=== PATIENT | female | born 1985 | race Caucasian/White ===

== ENCOUNTER 2018-12-07 08:11 | Observation (INO) | payer MEDICAID ==
[~2018-12-07] VITALS: Ht 160 cm; Wt 86.2 kg
== END 2018-12-07 11:05 | disposition home or self-care (01) ==
LOC: 8 EST LDRP 08:11
PROVIDERS: ADMIT Obstetrics & Gynecology; ATTEND Obstetrics & Gynecology
DX: O62.9 Abnormality of forces of labor, unspecified (principal); O26.893 Other specified pregnancy related conditions, third trimester; N89.8 Other specified noninflammatory disorders of vagina; Z3A.38 38 weeks gestation of pregnancy
CPT/HCPCS: 99281; G0378

== ENCOUNTER 2018-12-08 16:21 | Inpatient (IN) | payer MEDICAID ==
[~2018-12-08] VITALS: Ht 167.6 cm; Wt 108.9 kg
[2018-12-08] MEDS ORDERED: SODIUM CHLORIDE 0.9% 1,000 ML IV ONE (16:35)
[2018-12-08 17:04] LABS: BASOPHILS % 0.5 % (0.0-2.0); EOSINOPHILS % 0.9 % (0.0-5.0); HEMATOCRIT. 34.4 % (36.0-48.0); HEMOGLOBIN. 11.7 g/dL (12.0-16.0); LYMPHOCYTES % 21.8 % (20.0-50.0); MEAN CORPUSCULAR HEMOGLOBIN 29.3 pg (28.0-32.0); MEAN CORPUSCULAR VOLUME 85.9 fL (81.0-99.0); MEAN PLATELET VOLUME 9.4 fl (7.4-10.4); MONOCYTES % 7.1 % (2.0-8.0); NEUTROPHILS % 69.7 % (40.0-76.0); PLATELET 204 x1000/uL (130-400); RED BLOOD CELL COUNT 4.01 mill/uL (4.2-5.4)
[2018-12-08 17:07] LABS: INR 0.9; PROTHROMBIN TIME 9.7 sec (9.6-11.0)
[2018-12-08 17:08] LABS: CHLORIDE 110 mEq/L (98-107)
[2018-12-08 17:13] LABS: ETHANOL BLOOD < 10 mg/dL
[2018-12-08 17:53] LABS: B-HCG QUANTITATIVE 23395 mIU/mL (<3)
[2018-12-08 22:30] VITALS: BP 99/50
[2018-12-08] MEDS: SODIUM CHLORIDE 0.9% 1,000 ML IV SCH (23:35)
[2018-12-08] MEDS ORDERED: ACETAMINOPHEN 325MG TABLET PO PRN (23:45)
[2018-12-08] MEDS ORDERED: CLONIDINE 0.1MG TABLET PO PRN (23:45)
[2018-12-08] MEDS ORDERED: MAGNESIUM/ALUMINUM HYDROXIDE/SIMETHICONE 30ML UDC PO PRN (23:45)
[2018-12-08] MEDS ORDERED: ONDANSETRON HCL 4MG/2ML INJ IV PRN (23:45)
[2018-12-08] MEDS ORDERED: IPRATROPIUM/ALBUTEROL 0.5-3(2.5)MG/3ML NEB INH PRN (23:45)
[2018-12-09 01:08] LABS: CHLORIDE 112 mEq/L (98-107)
[2018-12-09 04:00] VITALS: BP 105/55
[2018-12-09 06:13] LABS: BASOPHILS % 0.3 % (0.0-2.0); EOSINOPHILS % 1.9 % (0.0-5.0); HEMATOCRIT. 29.6 % (36.0-48.0); HEMOGLOBIN. 10.1 g/dL (12.0-16.0); LYMPHOCYTES % 33.7 % (20.0-50.0); MEAN CORPUSCULAR HEMOGLOBIN 29.3 pg (28.0-32.0); MEAN CORPUSCULAR VOLUME 85.7 fL (81.0-99.0); MEAN PLATELET VOLUME 9.3 fl (7.4-10.4); MONOCYTES % 6.6 % (2.0-8.0); NEUTROPHILS % 57.5 % (40.0-76.0); PLATELET 169 x1000/uL (130-400); RED BLOOD CELL COUNT 3.46 mill/uL (4.2-5.4); RED CELL DISTRIBUTION WIDTH 14.9 % (11.6-14.6)
[2018-12-09 06:51] LABS: CHLORIDE 111 mEq/L (98-107)
[2018-12-09] MEDS ORDERED: POTASSIUM CHLORIDE 20MEQ TABLET SR PO SCH (07:00)
[2018-12-09 07:03] LABS: LDL CHOLESTEROL 81 mg/dL (5-100)
[2018-12-09 07:04] LABS: CREATINE KINASE 265 IU/L (26-192); HDL CHOLESTEROL 46 mg/dL (40-59)
[2018-12-09 07:08] LABS: CREATINE KINASE MB FRACTION 2.7 ng/mL (0.5-3.6)
[2018-12-09] MEDS: SODIUM CHLORIDE 0.9% 1,000 ML IV SCH (12:05)
[2018-12-09] MEDS ORDERED: POTASSIUM CHLORIDE 20MEQ/PACKET PO NR (19:30)
[2018-12-09 20:14] LABS: CREATINE KINASE 253 IU/L (26-192)
[2018-12-09 20:15] LABS: CREATINE KINASE MB FRACTION 2.5 ng/mL (0.5-3.6)
[2018-12-10] MEDS: SODIUM CHLORIDE 0.9% 1,000 ML IV SCH (00:35)
[2018-12-10 04:46] LABS: CHLORIDE 111 mEq/L (98-107)
[2018-12-10 06:05] LABS: BASOPHILS % 0.3 % (0.0-2.0); HEMOGLOBIN. 11.3 g/dL (12.0-16.0); MEAN CORPUSCULAR HEMOGLOBIN 29.4 pg (28.0-32.0); MEAN CORPUSCULAR VOLUME 86.1 fL (81.0-99.0); MEAN PLATELET VOLUME 9.7 fl (7.4-10.4); MONOCYTES % 6.8 % (2.0-8.0); NEUTROPHILS % 60.9 % (40.0-76.0); PLATELET 200 x1000/uL (130-400); RED BLOOD CELL COUNT 3.83 mill/uL (4.2-5.4); RED CELL DISTRIBUTION WIDTH 14.9 % (11.6-14.6)
[2018-12-10 08:00] VITALS: BP 123/66
[2018-12-10] MEDS ORDERED: OLANZAPINE 10 MG/VIAL IM PRN (15:00)
[2018-12-10 20:00] VITALS: BP 130/68
[2018-12-11] VITALS: BP 113/57
[2018-12-11] MEDS: SODIUM CHLORIDE 0.9% 1,000 ML IV SCH (01:35)
[2018-12-11 04:00] VITALS: BP 118/62
[2018-12-11 07:30] VITALS: BP 121/66
[2018-12-11 12:00] VITALS: BP 109/56
[2018-12-11 20:00] VITALS: BP 112/58
[2018-12-12] VITALS: BP 116/59
[2018-12-12 04:00] VITALS: BP 128/64
[2018-12-12 06:50] LABS: BASOPHILS % 0.4 % (0.0-2.0); EOSINOPHILS % 2.3 % (0.0-5.0); HEMATOCRIT. 31.6 % (36.0-48.0); HEMOGLOBIN. 10.8 g/dL (12.0-16.0); LYMPHOCYTES % 26.8 % (20.0-50.0); MEAN CORPUSCULAR HEMOGLOBIN 29.1 pg (28.0-32.0); MEAN CORPUSCULAR VOLUME 85.4 fL (81.0-99.0); MEAN PLATELET VOLUME 9.3 fl (7.4-10.4); MONOCYTES % 8.6 % (2.0-8.0); NEUTROPHILS % 61.9 % (40.0-76.0); PLATELET 184 x1000/uL (130-400); RED CELL DISTRIBUTION WIDTH 14.7 % (11.6-14.6)
[2018-12-12 07:06] LABS: CHLORIDE 111 mEq/L (98-107)
[2018-12-12 08:00] VITALS: BP 110/70
[2018-12-12 12:00] VITALS: BP 109/64
[2018-12-12] MEDS: SODIUM CHLORIDE 0.9% 1,000 ML IV SCH (15:05)
[2018-12-12] MEDS ORDERED: ONDANSETRON HCL 4MG TABLET PO PRN (15:30)
[2018-12-12 15:48] LABS: *AMPHETAMINES SCREEN URINE NEGATIVE (NEGATIVE); *BARBITURATES SCREEN URINE NEGATIVE (NEGATIVE); *BENZODIAZEPINES SCREEN URINE NEGATIVE (NEGATIVE); *COCAINE SCREEN URINE NEGATIVE (NEGATIVE); METHADONE URINE SCREEN NEGATIVE (NEGATIVE)
[2018-12-12 15:49] LABS: CANNABINOID URINE SCREEN NEGATIVE (NEGATIVE); OPIATES URINE SCREEN NEGATIVE (NEGATIVE); PHENCYCLIDINE URINE SCREEN NEGATIVE (NEGATIVE)
[2018-12-12 16:00] VITALS: BP 120/69
[2018-12-12 20:00] VITALS: BP 122/71
[2018-12-13] VITALS: BP 119/73
[2018-12-13] MEDS: SODIUM CHLORIDE 0.9% 1,000 ML IV SCH (03:35)
[2018-12-13 04:00] VITALS: BP 100/54
[2018-12-13 07:50] VITALS: BP 108/64
[2018-12-13 10:04] VITALS: BP 108/64
[2018-12-13 12:00] VITALS: BP 115/68
[2018-12-13 16:00] VITALS: BP 110/67
== END 2018-12-13 19:25 | disposition home or self-care (01) | DRG 566 ==
LOC: ER 16:34 → 5WST 17:29 → EDBEDREQ 17:35 → EDBEDREQTM 17:35 → EDBEDREQSVC 19:52 → EDBEDREQTM 19:52 → EDBEDREQ 19:52 → ENRESERV 21:01 → 5WST 12-09 13:53 → 8WST 12-09 22:00
PROVIDERS: ADMIT Obstetrics & Gynecology; ATTEND Internal Medicine
DX: O99.323 Drug use complicating pregnancy, third trimester (principal); O16.3 Unspecified maternal hypertension, third trimester; O99.013 Anemia complicating pregnancy, third trimester; O26.893 Other specified pregnancy related conditions, third trimester; O99.313 Alcohol use complicating pregnancy, third trimester; Z53.29 Procedure and treatment not carried out because of patient's decision for other reasons; F15.90 Other stimulant use, unspecified, uncomplicated; D64.9 Anemia, unspecified; R74.0 Nonspecific elevation of levels of transaminase and lactic acid dehydrogenase [LDH]; F12.90 Cannabis use, unspecified, uncomplicated; R41.82 Altered mental status, unspecified; K59.00 Constipation, unspecified; X58.XXXA Exposure to other specified factors, initial encounter; S80.212A Abrasion, left knee, initial encounter; Z3A.38 38 weeks gestation of pregnancy; Y93.89 Activity, other specified; Y92.89 Other specified places as the place of occurrence of the external cause; Y99.8 Other external cause status; Z72.89 Other problems related to lifestyle
CPT/HCPCS: 36415; 73610; 76805; 80048; 80061; 80076; 80305; 80307; 80320; 80329; 82550; 82553; 82962; 83605; 84443; 84484; 84702; 86850; 86900; 93970; 96365; 96375; 99285; J7030; Q0162; G0480

== ENCOUNTER 2019-10-24 09:38 | Emergency (ER) | payer MEDICAID ==
[~2019-10-24] VITALS: Ht 167.6 cm; Wt 73.0 kg
[2019-10-24 11:27] LABS: BASOPHILS % 0.8 % (0.0-2.0); HEMATOCRIT. 36.2 % (36.0-48.0); HEMOGLOBIN. 12.5 g/dL (12.0-16.0); MEAN CORPUSCULAR HEMOGLOBIN 29.6 pg (28.0-32.0); MEAN PLATELET VOLUME 9.1 fl (7.4-10.4); MONOCYTES % 8.8 % (2.0-8.0); NEUTROPHILS % 54.4 % (40.0-76.0); PLATELET 213 x1000/uL (130-400); RED BLOOD CELL COUNT 4.22 mill/uL (4.2-5.4); RED CELL DISTRIBUTION WIDTH 14.2 % (11.6-14.6)
[2019-10-24 11:32] LABS: CHLORIDE 111 mEq/L (98-107)
[2019-10-24 11:36] LABS: ETHANOL BLOOD < 10 mg/dL
[2019-10-24 11:50] LABS: CLARITY URINE CLEAR (CLEAR); COLOR URINE YELLOW (YELLOW); KETONES URINE NEGATIVE (NEGATIVE); LEUKOCYTE ESTERASE URINE TRACE (NEGATIVE); NITRITE URINE NEGATIVE (NEGATIVE); OCCULT BLOOD URINE 2+ (NEGATIVE); PROTEIN URINE NEGATIVE (NEGATIVE); SPECIFIC GRAVITY URINE 1.008 (1.005-1.030)
[2019-10-24 12:25] LABS: *BARBITURATES SCREEN URINE NEGATIVE (NEGATIVE); *BENZODIAZEPINES SCREEN URINE NEGATIVE (NEGATIVE); *COCAINE SCREEN URINE NEGATIVE (NEGATIVE); METHADONE URINE SCREEN NEGATIVE (NEGATIVE); OPIATES URINE SCREEN NEGATIVE (NEGATIVE)
[2019-10-24 12:26] LABS: CANNABINOID URINE SCREEN NEGATIVE (NEGATIVE); PHENCYCLIDINE URINE SCREEN NEGATIVE (NEGATIVE)
[2019-10-24 12:30] LABS: *AMPHETAMINES SCREEN URINE PRESUMTIVE POSITIVE (NEGATIVE)
[2019-10-25] MEDS ORDERED: OLANZAPINE 5MG TABLET PO STA (06:08)
[2019-10-25] MEDS ORDERED: OLANZAPINE 10 MG/VIAL IM ONE (06:15)
[2019-10-25 18:28] VITALS: BP 97/61
== END 2019-10-25 18:55 ==
LOC: ER 09:38
DX: R41.82 Altered mental status, unspecified (principal); F15.10 Other stimulant abuse, uncomplicated
CPT/HCPCS: 36415; 80053; 80305; 80320; 81003; 81025; 85025; 96372; 99285; J3490; G0480